=== PATIENT | male | born 1990 | race Caucasian/White ===

== ENCOUNTER → 2019-10-22 | Outpatient (CLI) | payer OTHER ==
--- NOTE | 2019-10-22 14:29 | Diagnostic Imaging Report ---
Left knee MRI without contrast. History: Knee pain. Sprain of the medial collateral ligament. Decreased range of motion. Comparison: None. Technique: Multiplanar multi-sequence MRI of the knee without contrast. Findings: Medial compartment: No meniscal tear, cartilage abnormality, or MCL tear. Lateral compartment: No meniscal tear or cartilage abnormality. The LCL complex is normal. Intercondylar notch: The ACL and PCL are intact. Patellofemoral compartment: No chondromalacia or patellar dislocation. Extensor mechanism: The quadriceps and patellar tendons are normal. Other findings: There is a small joint effusion and mild synovitis. There is no acute fracture, subluxation or avascular necrosis. IMPRESSION: No meniscal tear, collateral ligament tear or cruciate ligament tear. Signed by: Dr. Marko Reeves M.D. on 10/22/2019 2:26 PM
== END ==
LOC: MRI 13:01
PROVIDERS: ATTEND Family Medicine
DX: S83.412A Sprain of medial collateral ligament of left knee, initial encounter (principal)